=== PATIENT | female | born 1950 | race Two or more races ===

== ENCOUNTER → 2017-02-12 | Outpatient (CLI) | payer MEDICARE | END | disposition home or self-care (01) | LOC: WOUND 13:53 | PROVIDERS: ATTEND Podiatrist Foot & Ankle Surgery | DX: T81.31XA Disruption of external operation (surgical) wound, not elsewhere classified, initial encounter (principal); M06.9 Rheumatoid arthritis, unspecified; Z72.89 Other problems related to lifestyle; Y92.89 Other specified places as the place of occurrence of the external cause | CPT/HCPCS: 97597; G0463; WOU0463 ==

== ENCOUNTER → 2017-02-19 | Outpatient (CLI) | payer MEDICARE | END | disposition home or self-care (01) | LOC: WOUND 14:30 | PROVIDERS: ATTEND Podiatrist Foot & Ankle Surgery | DX: T81.31XD Disruption of external operation (surgical) wound, not elsewhere classified, subsequent encounter (principal); M06.9 Rheumatoid arthritis, unspecified; Z72.89 Other problems related to lifestyle; Y83.8 Other surgical procedures as the cause of abnormal reaction of the patient, or of later complication, without mention of misadventure at the time of the procedure | CPT/HCPCS: 11042 ==

== ENCOUNTER → 2017-02-26 | Outpatient (CLI) | payer MEDICAID, MEDICARE | END | disposition home or self-care (01) | LOC: WOUND 14:30 | PROVIDERS: ATTEND Podiatrist Foot & Ankle Surgery | DX: T81.31XD Disruption of external operation (surgical) wound, not elsewhere classified, subsequent encounter (principal); M06.9 Rheumatoid arthritis, unspecified; Z72.89 Other problems related to lifestyle; Y83.8 Other surgical procedures as the cause of abnormal reaction of the patient, or of later complication, without mention of misadventure at the time of the procedure | CPT/HCPCS: 97597 ==

== ENCOUNTER → 2017-03-05 | Outpatient (CLI) | payer MEDICARE | END | disposition home or self-care (01) | LOC: WOUND 14:30 | PROVIDERS: ATTEND Podiatrist Foot & Ankle Surgery | DX: T81.31XD Disruption of external operation (surgical) wound, not elsewhere classified, subsequent encounter (principal); M06.9 Rheumatoid arthritis, unspecified; Z72.89 Other problems related to lifestyle; Y83.8 Other surgical procedures as the cause of abnormal reaction of the patient, or of later complication, without mention of misadventure at the time of the procedure | CPT/HCPCS: 97597 ==

== ENCOUNTER → 2017-03-12 | Outpatient (CLI) | payer MEDICARE | END | disposition home or self-care (01) | LOC: WOUND 15:05 | PROVIDERS: ATTEND Podiatrist Foot & Ankle Surgery | DX: T81.31XA Disruption of external operation (surgical) wound, not elsewhere classified, initial encounter (principal); M06.9 Rheumatoid arthritis, unspecified; Z72.89 Other problems related to lifestyle; Y92.89 Other specified places as the place of occurrence of the external cause; Y83.8 Other surgical procedures as the cause of abnormal reaction of the patient, or of later complication, without mention of misadventure at the time of the procedure | CPT/HCPCS: G0463; WOU0463 ==

== ENCOUNTER → 2017-03-19 | Outpatient (CLI) | payer MEDICARE | END | disposition home or self-care (01) | LOC: WOUND 14:46 | PROVIDERS: ATTEND Podiatrist Foot & Ankle Surgery | DX: T81.31XD Disruption of external operation (surgical) wound, not elsewhere classified, subsequent encounter (principal); M06.9 Rheumatoid arthritis, unspecified; Z72.89 Other problems related to lifestyle; Y83.8 Other surgical procedures as the cause of abnormal reaction of the patient, or of later complication, without mention of misadventure at the time of the procedure | CPT/HCPCS: 11042 ==

== ENCOUNTER → 2017-03-26 | Outpatient (CLI) | payer MEDICARE | END | disposition home or self-care (01) | LOC: WOUND 14:26 | PROVIDERS: ATTEND Podiatrist Foot & Ankle Surgery | DX: T81.31XD Disruption of external operation (surgical) wound, not elsewhere classified, subsequent encounter (principal); M06.9 Rheumatoid arthritis, unspecified; Z72.89 Other problems related to lifestyle; Y83.8 Other surgical procedures as the cause of abnormal reaction of the patient, or of later complication, without mention of misadventure at the time of the procedure | CPT/HCPCS: 97597 ==

== ENCOUNTER → 2017-04-02 | Outpatient (CLI) | payer MEDICARE | END | disposition home or self-care (01) | LOC: WOUND 15:05 | PROVIDERS: ATTEND Podiatrist Foot & Ankle Surgery | DX: T81.31XD Disruption of external operation (surgical) wound, not elsewhere classified, subsequent encounter (principal); M06.9 Rheumatoid arthritis, unspecified; Z72.89 Other problems related to lifestyle; Y83.8 Other surgical procedures as the cause of abnormal reaction of the patient, or of later complication, without mention of misadventure at the time of the procedure | CPT/HCPCS: 11042 ==

== ENCOUNTER → 2017-04-09 | Outpatient (CLI) | payer MEDICARE | END | disposition home or self-care (01) | LOC: WOUND 14:00 | PROVIDERS: ATTEND Podiatrist Foot & Ankle Surgery | DX: T81.31XD Disruption of external operation (surgical) wound, not elsewhere classified, subsequent encounter (principal); M06.9 Rheumatoid arthritis, unspecified; Z72.89 Other problems related to lifestyle; Y83.8 Other surgical procedures as the cause of abnormal reaction of the patient, or of later complication, without mention of misadventure at the time of the procedure | CPT/HCPCS: 97597 ==

== ENCOUNTER → 2017-04-16 | Outpatient (CLI) | payer MEDICARE | END | disposition home or self-care (01) | LOC: WOUND 14:35 | PROVIDERS: ATTEND Podiatrist Foot & Ankle Surgery | DX: T81.31XD Disruption of external operation (surgical) wound, not elsewhere classified, subsequent encounter (principal); M06.9 Rheumatoid arthritis, unspecified; Z72.89 Other problems related to lifestyle; Y83.8 Other surgical procedures as the cause of abnormal reaction of the patient, or of later complication, without mention of misadventure at the time of the procedure | CPT/HCPCS: 97597 ==

== ENCOUNTER → 2017-04-30 | Outpatient (CLI) | payer MEDICARE | END | disposition home or self-care (01) | LOC: WOUND 14:49 | PROVIDERS: ATTEND Podiatrist Foot & Ankle Surgery | DX: T81.31XD Disruption of external operation (surgical) wound, not elsewhere classified, subsequent encounter (principal); M06.9 Rheumatoid arthritis, unspecified; Z72.89 Other problems related to lifestyle; Y83.8 Other surgical procedures as the cause of abnormal reaction of the patient, or of later complication, without mention of misadventure at the time of the procedure | CPT/HCPCS: 11042; 87070; 87077; 87186; 87205 ==

== ENCOUNTER → 2017-05-07 | Outpatient (CLI) | payer MEDICARE | END | disposition home or self-care (01) | LOC: WOUND 13:57 | PROVIDERS: ATTEND Podiatrist Foot & Ankle Surgery | DX: T81.31XD Disruption of external operation (surgical) wound, not elsewhere classified, subsequent encounter (principal); M34.1 CR(E)ST syndrome; Z72.89 Other problems related to lifestyle; M06.9 Rheumatoid arthritis, unspecified; Y83.8 Other surgical procedures as the cause of abnormal reaction of the patient, or of later complication, without mention of misadventure at the time of the procedure | CPT/HCPCS: 11042 ==

== ENCOUNTER → 2017-05-21 | Outpatient (CLI) | payer MEDICARE | END | disposition home or self-care (01) | LOC: WOUND 14:15 | PROVIDERS: ATTEND Podiatrist Foot & Ankle Surgery | DX: T81.31XD Disruption of external operation (surgical) wound, not elsewhere classified, subsequent encounter (principal); M06.9 Rheumatoid arthritis, unspecified; Z72.89 Other problems related to lifestyle; Y83.8 Other surgical procedures as the cause of abnormal reaction of the patient, or of later complication, without mention of misadventure at the time of the procedure | CPT/HCPCS: 11042 ==

== ENCOUNTER 2017-06-19 12:10 | Inpatient (IN) | payer MEDICARE ==
[~2017-06-19] VITALS: Ht 175.3 cm; Wt 71.9 kg
[2017-06-19 13:46] LABS: HEMATOCRIT 38.9 % (34.6-47.8); HEMOGLOBIN 12.8 g/dL (11.7-16.4); WHITE BLOOD COUNT 21.5 x10^3/uL (3.4-10)
[2017-06-19 13:57] LABS: BLOOD UREA NITROGEN 17 mg/dL (7-18)
[2017-06-19] MEDS ORDERED: SODIUM CHLORIDE 0.9% 1,000 ML IV ONE (15:44)
[2017-06-19] MEDS ORDERED: LIDOCAINE 1%, 20ML ONE (15:48)
[2017-06-19] MEDS ORDERED: MORPHINE SULFATE 4 MG/ML, 1ML IVPush ONE (16:00)
[2017-06-19] MEDS ORDERED: PIPERACILLIN/TAZO/PMX 3.375GM 50 ML IVPB ONE (16:00)
[2017-06-19] MEDS ORDERED: LIDOCAINE 1%, 20ML INFIL ONE (16:00)
[2017-06-19] MEDS ORDERED: SODIUM CHLORIDE FLUSH 10ML SYR IVF ONE (16:00)
[2017-06-19] MEDS ORDERED: PIPERACILLIN/TAZO/PMX 3.375GM 50 ML ONE (16:18)
[2017-06-19] MEDS ORDERED: morphine SULFATE 10 MG/ML, 1ML ONE (16:18)
[2017-06-19 17:00] VITALS: BP 118/77
[2017-06-19 20:00] VITALS: BP 99/61
[2017-06-19] MEDS: AMPICILLIN/SULBACTAM 3 GM in SODIUM CHLORIDE 0.9% 100 ML IV SCH (21:15)
[2017-06-19] MEDS: ENOXAPARIN 40 MG/0.4 ML SQ SCH (21:16)
[2017-06-19] MEDS: HYDROcodone/APAP 5/325 TABLET PO PRN (21:16)
[2017-06-19] MEDS: SODIUM CHLORIDE 0.9% 1,000 ML IV SCH (21:16)
[2017-06-19 22:00] VITALS: BP 118/77
[2017-06-20] MEDS: AMPICILLIN/SULBACTAM 3 GM in SODIUM CHLORIDE 0.9% 100 ML IV SCH ×4 (03:03→21:17)
[2017-06-20 03:10] VITALS: BP 90/52
[2017-06-20 04:58] VITALS: BP 123/79
[2017-06-20 05:39] LABS: BLOOD UREA NITROGEN 17 mg/dL (7-18)
[2017-06-20 06:11] LABS: HEMATOCRIT 34.4 % (34.6-47.8); HEMOGLOBIN 11.4 g/dL (11.7-16.4); WHITE BLOOD COUNT 17.1 x10^3/uL (3.4-10)
[2017-06-20] MEDS: HYDROcodone/APAP 5/325 TABLET PO PRN ×2 (06:35→14:20)
[2017-06-20 07:46] VITALS: BP 111/63
[2017-06-20] MEDS: ACETAMINOPHEN 325 MG TABLET PO PRN ×2 (07:56→20:39)
[2017-06-20] MEDS: SODIUM CHLORIDE 0.9% 1,000 ML IV SCH ×2 (09:18→22:11)
[2017-06-20 14:10] VITALS: BP_SYST 113; BP_SYST 140; BP_DIAS 70; BP_DIAS 90
[2017-06-20] MEDS ORDERED: GADOBUTROL 7.5 MMOL/7.5 ML PFS ONE (16:26)
[2017-06-20 20:14] VITALS: BP 104/63
[2017-06-20] MEDS: ENOXAPARIN 40 MG/0.4 ML SQ SCH (21:18)
[2017-06-21 00:47] VITALS: BP 112/66
[2017-06-21] MEDS: HYDROcodone/APAP 5/325 TABLET PO PRN ×4 (00:47→18:55)
[2017-06-21] MEDS: AMPICILLIN/SULBACTAM 3 GM in SODIUM CHLORIDE 0.9% 100 ML IV SCH ×4 (02:49→21:23)
[2017-06-21 05:24] LABS: HEMATOCRIT 33.5 % (34.6-47.8); HEMOGLOBIN 11.1 g/dL (11.7-16.4); WHITE BLOOD COUNT 18.2 x10^3/uL (3.4-10)
[2017-06-21 05:35] LABS: BLOOD UREA NITROGEN 15 mg/dL (7-18)
[2017-06-21] MEDS: ACETAMINOPHEN 325 MG TABLET PO PRN (06:06)
[2017-06-21 06:45] VITALS: BP 97/59
[2017-06-21] MEDS: SODIUM CHLORIDE 0.9% 1,000 ML IV SCH ×2 (08:59→22:04)
[2017-06-21] MEDS ORDERED: VANCOMYCIN PER PHARMACY MC PRN (12:00)
[2017-06-21] MEDS ORDERED: PHARMACOKINETIC MONITORING MC PRN (12:00)
[2017-06-21] MEDS: VANCOMYCIN 1,400 MG in SODIUM CHLORIDE 0.9% 250 ML IV SCH (12:47)
[2017-06-21 13:56] VITALS: BP 119/69
[2017-06-21 19:10] VITALS: BP 136/76
[2017-06-21] MEDS: ENOXAPARIN 40 MG/0.4 ML SQ SCH (21:24)
[2017-06-22 01:16] VITALS: BP 132/72
[2017-06-22] MEDS: HYDROcodone/APAP 5/325 TABLET PO PRN ×3 (01:54→19:48)
[2017-06-22] MEDS: AMPICILLIN/SULBACTAM 3 GM in SODIUM CHLORIDE 0.9% 100 ML IV SCH ×3 (02:58→19:46)
[2017-06-22] MEDS: VANCOMYCIN 1,400 MG in SODIUM CHLORIDE 0.9% 250 ML IV SCH (05:55)
[2017-06-22 06:08] LABS: HEMATOCRIT 30.8 % (34.6-47.8); HEMOGLOBIN 10.4 g/dL (11.7-16.4); WHITE BLOOD COUNT 19.5 x10^3/uL (3.4-10)
[2017-06-22 06:22] LABS: BLOOD UREA NITROGEN 12 mg/dL (7-18)
[2017-06-22 07:00] VITALS: BP 151/78
[2017-06-22] MEDS ORDERED: POTASSIUM CHLORIDE 40 MEQ in SODIUM CHLORIDE 0.9% 500 ML IV ONE (09:00)
[2017-06-22] MEDS: SODIUM CHLORIDE 0.9% 1,000 ML IV SCH (12:12)
[2017-06-22 13:22] VITALS: BP 118/73
[2017-06-22 19:07] VITALS: BP 124/73
[2017-06-22] MEDS: ENOXAPARIN 40 MG/0.4 ML SQ SCH (19:49)
[2017-06-23] MEDS: VANCOMYCIN 1,400 MG in SODIUM CHLORIDE 0.9% 250 ML IV SCH ×2 (00:49→18:13)
[2017-06-23] MEDS: AMPICILLIN/SULBACTAM 3 GM in SODIUM CHLORIDE 0.9% 100 ML IV SCH ×3 (03:09→14:06)
[2017-06-23 03:15] VITALS: BP 118/72
[2017-06-23] MEDS: ACETAMINOPHEN 325 MG TABLET PO PRN ×2 (05:01→14:16)
[2017-06-23 06:53] VITALS: BP 123/75
[2017-06-23] MEDS: SODIUM CHLORIDE 0.9% 1,000 ML IV SCH (08:28)
[2017-06-23] MEDS: HYDROcodone/APAP 5/325 TABLET PO PRN ×2 (08:34→18:32)
[2017-06-23 14:10] VITALS: BP 149/80
[2017-06-23] MEDS: GUAIFENESIN/DM 200-20MG, 10ML UDC PO PRN ×2 (15:05→20:48)
[2017-06-23 19:12] VITALS: BP 133/80
[2017-06-23] MEDS: ENOXAPARIN 40 MG/0.4 ML SQ SCH (20:48)
[2017-06-23] MEDS: PIPERACILLIN/TAZO/PMX 3.375GM 50 ML IV SCH (20:48)
[2017-06-24 01:12] VITALS: BP 127/86
[2017-06-24] MEDS: GUAIFENESIN/DM 200-20MG, 10ML UDC PO PRN ×4 (02:24→21:43)
[2017-06-24] MEDS: HYDROcodone/APAP 5/325 TABLET PO PRN ×5 (02:24→23:24)
[2017-06-24] MEDS: PIPERACILLIN/TAZO/PMX 3.375GM 50 ML IV SCH ×4 (02:24→21:43)
[2017-06-24 06:35] LABS: HEMATOCRIT 28.6 % (34.6-47.8); HEMOGLOBIN 9.7 g/dL (11.7-16.4); WHITE BLOOD COUNT 22.6 x10^3/uL (3.4-10)
[2017-06-24 06:40] VITALS: BP 106/68
[2017-06-24 06:56] LABS: BLOOD UREA NITROGEN 12 mg/dL (7-18)
[2017-06-24 07:23] LABS: DIFF TOTAL CELLS COUNTED 100 CELL DIFF
[2017-06-24 07:24] LABS: VERIFY COUNTS? YES
[2017-06-24] MEDS ORDERED: POTASSIUM CHLORIDE 10 MEQ TABLET.ER ONE (09:13)
[2017-06-24] MEDS: POTASSIUM CHLORIDE 20 MEQ TAB.ER.PRT PO SCH ×2 (09:22→19:18)
[2017-06-24] MEDS ORDERED: POTASSIUM CHLORIDE 40 MEQ in SODIUM CHLORIDE 0.9% 500 ML IV ONE (09:30)
[2017-06-24 12:06] VITALS: BP 109/65
[2017-06-24] MEDS: VANCOMYCIN 1,400 MG in SODIUM CHLORIDE 0.9% 250 ML IV SCH (12:17)
[2017-06-24 18:56] VITALS: BP 107/70
[2017-06-24] MEDS: ENOXAPARIN 40 MG/0.4 ML SQ SCH (21:43)
[2017-06-25 01:08] VITALS: BP 114/69
[2017-06-25] MEDS: PIPERACILLIN/TAZO/PMX 3.375GM 50 ML IV SCH ×4 (03:26→20:59)
[2017-06-25] MEDS: HYDROcodone/APAP 5/325 TABLET PO PRN ×4 (03:26→20:55)
[2017-06-25] MEDS: GUAIFENESIN/DM 200-20MG, 10ML UDC PO PRN (03:31)
[2017-06-25 05:33] LABS: HEMATOCRIT 28.2 % (34.6-47.8); HEMOGLOBIN 9.5 g/dL (11.7-16.4); WHITE BLOOD COUNT 26.4 x10^3/uL (3.4-10)
[2017-06-25] MEDS: VANCOMYCIN 1,400 MG in SODIUM CHLORIDE 0.9% 250 ML IV SCH ×2 (05:54→23:54)
[2017-06-25] MEDS ORDERED: FLU VACC QS2017-18 (36MOS+) UP/PF 0.5 ML IM-VACC ONE (06:30)
[2017-06-25 07:21] VITALS: BP 122/74
[2017-06-25 07:21] LABS: BLOOD UREA NITROGEN 14 mg/dL (7-18)
[2017-06-25] MEDS: POTASSIUM CHLORIDE 20 MEQ TAB.ER.PRT PO SCH ×2 (09:33→16:53)
[2017-06-25] MEDS ORDERED: POTASSIUM CHLORIDE 40 MEQ in SODIUM CHLORIDE 0.9% 500 ML IV ONE (10:00)
[2017-06-25] MEDS ORDERED: MAGNESIUM SULFATE PMX 2GM/50ML 50 ML IV ONE (10:00)
[2017-06-25 14:30] VITALS: BP 129/73
[2017-06-25 18:45] VITALS: BP 130/77
[2017-06-25] MEDS: ENOXAPARIN 40 MG/0.4 ML SQ SCH (20:59)
[2017-06-26 00:32] VITALS: BP 128/80
[2017-06-26] MEDS: HYDROcodone/APAP 5/325 TABLET PO PRN ×5 (00:56→22:54)
[2017-06-26] MEDS: PIPERACILLIN/TAZO/PMX 3.375GM 50 ML IV SCH ×4 (03:03→22:50)
[2017-06-26 08:00] VITALS: BP 121/73
[2017-06-26] MEDS: POTASSIUM CHLORIDE 20 MEQ TAB.ER.PRT PO SCH ×2 (08:00→17:09)
[2017-06-26 08:42] LABS: HEMOGLOBIN 9.7 g/dL (11.7-16.4); WHITE BLOOD COUNT 26.6 x10^3/uL (3.4-10)
[2017-06-26 08:55] LABS: BLOOD UREA NITROGEN 14 mg/dL (7-18)
[2017-06-26] MEDS: GUAIFENESIN/DM 200-20MG, 10ML UDC PO PRN (09:33)
[2017-06-26 14:00] VITALS: BP 98/67
[2017-06-26] MEDS: VANCOMYCIN 1,400 MG in SODIUM CHLORIDE 0.9% 250 ML IV SCH (18:33)
[2017-06-26] MEDS: IBUPROFEN 200 MG TABLET PO PRN (18:35)
[2017-06-26 18:40] VITALS: BP 147/78
[2017-06-26] MEDS: ENOXAPARIN 40 MG/0.4 ML SQ SCH (20:15)
[2017-06-27 00:24] VITALS: BP 92/61
[2017-06-27] MEDS: IBUPROFEN 200 MG TABLET PO PRN ×4 (00:24→20:07)
[2017-06-27] MEDS: PIPERACILLIN/TAZO/PMX 3.375GM 50 ML IV SCH ×2 (05:15→11:33)
[2017-06-27] MEDS: GUAIFENESIN/DM 200-20MG, 10ML UDC PO PRN ×2 (06:19→20:19)
[2017-06-27] MEDS: HYDROcodone/APAP 5/325 TABLET PO PRN ×4 (07:31→22:43)
[2017-06-27 07:55] VITALS: BP 111/65
[2017-06-27 12:40] VITALS: BP 111/68
[2017-06-27] MEDS: VANCOMYCIN 1,400 MG in SODIUM CHLORIDE 0.9% 250 ML IV SCH (13:20)
[2017-06-27] MEDS: PIPERACILLIN/TAZO 3.375 GM in SODIUM CHLORIDE 0.9% 50 ML IV SCH ×2 (17:01→23:09)
[2017-06-27 18:55] VITALS: BP 105/64
[2017-06-27] MEDS: OMEPRAZOLE 20 MG CAPSULE.DR PO SCH (20:07)
[2017-06-27] MEDS: ENOXAPARIN 40 MG/0.4 ML SQ SCH (20:08)
[2017-06-28] MEDS: IBUPROFEN 200 MG TABLET PO PRN ×2 (01:54→17:56)
[2017-06-28 04:25] VITALS: BP 107/70
[2017-06-28] MEDS: PIPERACILLIN/TAZO 3.375 GM in SODIUM CHLORIDE 0.9% 50 ML IV SCH ×4 (05:09→23:55)
[2017-06-28] MEDS: VANCOMYCIN 1,400 MG in SODIUM CHLORIDE 0.9% 250 ML IV SCH ×2 (06:02→17:56)
[2017-06-28 08:20] VITALS: BP 117/72
[2017-06-28] MEDS: OMEPRAZOLE 20 MG CAPSULE.DR PO SCH (08:30)
[2017-06-28] MEDS: HYDROcodone/APAP 5/325 TABLET PO PRN ×2 (13:43→17:56)
[2017-06-28 16:00] VITALS: BP 117/72
[2017-06-28 19:05] VITALS: BP 107/68
[2017-06-28] MEDS: ENOXAPARIN 40 MG/0.4 ML SQ SCH (20:11)
[2017-06-29] MEDS: HYDROcodone/APAP 5/325 TABLET PO PRN ×4 (00:47→21:16)
[2017-06-29] MEDS: GUAIFENESIN/DM 200-20MG, 10ML UDC PO PRN ×2 (01:07→21:16)
[2017-06-29 02:00] VITALS: BP 108/64
[2017-06-29] MEDS: PIPERACILLIN/TAZO 3.375 GM in SODIUM CHLORIDE 0.9% 50 ML IV SCH ×3 (06:12→17:04)
[2017-06-29 07:15] VITALS: BP 152/77
[2017-06-29] MEDS: VANCOMYCIN 1,400 MG in SODIUM CHLORIDE 0.9% 250 ML IV SCH (07:25)
[2017-06-29] MEDS: OMEPRAZOLE 20 MG CAPSULE.DR PO SCH (07:26)
[2017-06-29] MEDS: IBUPROFEN 200 MG TABLET PO PRN (10:10)
[2017-06-29 13:38] VITALS: BP 114/67
[2017-06-29 19:17] VITALS: BP 156/76
[2017-06-29] MEDS: ENOXAPARIN 40 MG/0.4 ML SQ SCH (21:16)
[2017-06-30] MEDS: VANCOMYCIN 1,400 MG in SODIUM CHLORIDE 0.9% 250 ML IV SCH (00:05)
[2017-06-30 00:31] VITALS: BP 142/79
[2017-06-30] MEDS: PIPERACILLIN/TAZO 3.375 GM in SODIUM CHLORIDE 0.9% 50 ML IV SCH ×2 (01:34→07:48)
[2017-06-30] MEDS: HYDROcodone/APAP 5/325 TABLET PO PRN ×5 (01:34→23:57)
[2017-06-30 06:45] VITALS: BP 148/84
[2017-06-30 07:03] LABS: HEMATOCRIT 25.6 % (34.6-47.8); HEMOGLOBIN 8.4 g/dL (11.7-16.4); WHITE BLOOD COUNT 12.1 x10^3/uL (3.4-10)
[2017-06-30 07:07] LABS: BLOOD UREA NITROGEN 11 mg/dL (7-18)
[2017-06-30] MEDS: OMEPRAZOLE 20 MG CAPSULE.DR PO SCH (07:48)
[2017-06-30 12:25] VITALS: BP 112/69
[2017-06-30] MEDS: GUAIFENESIN/DM 200-20MG, 10ML UDC PO PRN (18:02)
[2017-06-30 19:35] VITALS: BP 128/68
[2017-06-30] MEDS: ENOXAPARIN 40 MG/0.4 ML SQ SCH (20:59)
[2017-07-01 01:31] VITALS: BP 126/67
[2017-07-01] MEDS: HYDROcodone/APAP 5/325 TABLET PO PRN ×5 (05:47→22:54)
[2017-07-01 06:42] LABS: HEMATOCRIT 25.3 % (34.6-47.8); HEMOGLOBIN 8.6 g/dL (11.7-16.4); WHITE BLOOD COUNT 10.9 x10^3/uL (3.4-10)
[2017-07-01 06:47] VITALS: BP 124/72
[2017-07-01] MEDS: OMEPRAZOLE 20 MG CAPSULE.DR PO SCH (09:03)
[2017-07-01 12:09] VITALS: BP 132/72
[2017-07-01] MEDS: ENOXAPARIN 40 MG/0.4 ML SQ SCH (19:31)
[2017-07-01] MEDS: GUAIFENESIN/DM 200-20MG, 10ML UDC PO PRN (19:31)
[2017-07-01 23:32] VITALS: BP 145/79
[2017-07-02 02:17] VITALS: BP 123/74
[2017-07-02] MEDS: HYDROcodone/APAP 5/325 TABLET PO PRN ×4 (05:25→23:03)
[2017-07-02 06:43] VITALS: BP 115/66
[2017-07-02] MEDS: OMEPRAZOLE 20 MG CAPSULE.DR PO SCH (07:30)
[2017-07-02 12:27] VITALS: BP 121/75
[2017-07-02 18:52] VITALS: BP 129/68
[2017-07-02] MEDS: IBUPROFEN 200 MG TABLET PO PRN (19:15)
[2017-07-02] MEDS: ENOXAPARIN 40 MG/0.4 ML SQ SCH (20:39)
[2017-07-03 00:22] VITALS: BP 111/62
[2017-07-03] MEDS: HYDROcodone/APAP 5/325 TABLET PO PRN ×6 (03:13→23:57)
[2017-07-03 05:46] VITALS: BP 108/72
[2017-07-03] MEDS: OMEPRAZOLE 20 MG CAPSULE.DR PO SCH (07:44)
[2017-07-03 07:56] VITALS: BP 114/67
[2017-07-03 13:12] VITALS: BP 133/78
[2017-07-03 20:09] VITALS: BP 113/75
[2017-07-03] MEDS: ENOXAPARIN 40 MG/0.4 ML SQ SCH (21:06)
[2017-07-03] MEDS: IBUPROFEN 200 MG TABLET PO PRN (21:11)
[2017-07-04 00:34] VITALS: BP 105/67
[2017-07-04] MEDS: HYDROcodone/APAP 5/325 TABLET PO PRN ×5 (03:50→21:01)
[2017-07-04] MEDS: IBUPROFEN 200 MG TABLET PO PRN (03:50)
[2017-07-04 06:05] LABS: HEMATOCRIT 27.4 % (34.6-47.8); HEMOGLOBIN 9.1 g/dL (11.7-16.4); WHITE BLOOD COUNT 13.2 x10^3/uL (3.4-10)
[2017-07-04 06:20] LABS: ASPARTATE AMINO TRANSFERASE 82 U/L (15-37); BLOOD UREA NITROGEN 20 mg/dL (7-18)
[2017-07-04 06:59] VITALS: BP 114/73
[2017-07-04] MEDS: OMEPRAZOLE 20 MG CAPSULE.DR PO SCH (07:56)
[2017-07-04 13:47] VITALS: BP 111/73
[2017-07-04 20:30] VITALS: BP 119/73
[2017-07-04] MEDS: ENOXAPARIN 40 MG/0.4 ML SQ SCH (21:01)
[2017-07-05 01:07] VITALS: BP 125/77
[2017-07-05] MEDS: HYDROcodone/APAP 5/325 TABLET PO PRN ×6 (01:09→23:59)
[2017-07-05 06:55] VITALS: BP 120/74
[2017-07-05] MEDS: OMEPRAZOLE 20 MG CAPSULE.DR PO SCH (07:27)
[2017-07-05 14:45] VITALS: BP 126/79
[2017-07-05] MEDS: ENOXAPARIN 40 MG/0.4 ML SQ SCH (19:35)
[2017-07-05 19:38] VITALS: BP 122/75
[2017-07-06 01:07] VITALS: BP 116/72
[2017-07-06] MEDS: HYDROcodone/APAP 5/325 TABLET PO PRN ×5 (03:59→22:58)
[2017-07-06 05:51] LABS: BLOOD UREA NITROGEN 15 mg/dL (7-18)
[2017-07-06 05:53] LABS: HEMATOCRIT 25.4 % (34.6-47.8); HEMOGLOBIN 8.5 g/dL (11.7-16.4)
[2017-07-06 07:20] VITALS: BP 118/75
[2017-07-06] MEDS: OMEPRAZOLE 20 MG CAPSULE.DR PO SCH (08:21)
[2017-07-06 13:48] VITALS: BP 115/72
[2017-07-06] MEDS: OxyconTIN ER 10 MG TAB.ER PO SCH (14:38)
[2017-07-06 19:16] VITALS: BP 146/80
[2017-07-06] MEDS: ENOXAPARIN 40 MG/0.4 ML SQ SCH (20:01)
[2017-07-07] MEDS: OxyconTIN ER 10 MG TAB.ER PO SCH ×2 (02:35→14:30)
[2017-07-07 03:33] VITALS: BP 104/65
[2017-07-07] MEDS: HYDROcodone/APAP 5/325 TABLET PO PRN ×4 (05:06→22:16)
[2017-07-07 06:44] VITALS: BP 104/67
[2017-07-07] MEDS: OMEPRAZOLE 20 MG CAPSULE.DR PO SCH (07:25)
[2017-07-07 14:34] VITALS: BP 130/73
[2017-07-07 19:59] VITALS: BP 127/76
[2017-07-07] MEDS: ENOXAPARIN 40 MG/0.4 ML SQ SCH (20:47)
[2017-07-07] MEDS: ACETAMINOPHEN 325 MG TABLET PO PRN (20:51)
[2017-07-08 01:16] VITALS: BP 112/72
[2017-07-08] MEDS: OxyconTIN ER 10 MG TAB.ER PO SCH ×2 (02:31→14:23)
[2017-07-08] MEDS: HYDROcodone/APAP 5/325 TABLET PO PRN ×4 (03:35→21:35)
[2017-07-08 07:46] VITALS: BP 109/69
[2017-07-08] MEDS: OMEPRAZOLE 20 MG CAPSULE.DR PO SCH (08:02)
[2017-07-08 13:37] VITALS: BP 110/70
[2017-07-08 18:41] VITALS: BP 123/75
[2017-07-08] MEDS: ENOXAPARIN 40 MG/0.4 ML SQ SCH (20:24)
[2017-07-09 01:16] VITALS: BP 114/75
[2017-07-09] MEDS: HYDROcodone/APAP 5/325 TABLET PO PRN ×3 (01:43→18:41)
[2017-07-09] MEDS: OxyconTIN ER 10 MG TAB.ER PO SCH ×2 (02:52→18:00)
[2017-07-09 06:50] VITALS: BP 119/76
[2017-07-09] MEDS: OMEPRAZOLE 20 MG CAPSULE.DR PO SCH (09:09)
[2017-07-09 15:09] VITALS: BP 109/70
[2017-07-09] MEDS ORDERED: ENOX40SY4 SQ (15:33)
[2017-07-09] MEDS ORDERED: OMEP-110 PO (15:33)
[2017-07-09] MEDS ORDERED: OXYC10TA47 PO (15:33)
[2017-07-09] MEDS ORDERED: HYDR-3240 PO (15:33)
[2017-07-09] MEDS ORDERED: IBUP-1484 PO (15:33)
== END 2017-07-09 19:30 | disposition short-term general hospital (02) | DRG 872 ==
LOC: ED 13:48 → EDIP 16:38 → 3NE 16:42
PROVIDERS: ADMIT Internal Medicine; ATTEND Internal Medicine
DX: A41.9 Sepsis, unspecified organism (principal); E44.0 Moderate protein-calorie malnutrition; M34.9 Systemic sclerosis, unspecified; L03.116 Cellulitis of left lower limb; L03.115 Cellulitis of right lower limb; L88 Pyoderma gangrenosum; I77.6 Arteritis, unspecified; M06.9 Rheumatoid arthritis, unspecified; Z68.23 Body mass index [BMI] 23.0-23.9, adult; Z88.8 Allergy status to other drugs, medicaments and biological substances
CPT/HCPCS: 36415; 71010; 80048; 80053; 80202; 82040; 83605; 83735; 83880; 85025; 85651; 86140; 87015; 87040; 87070; 87077; 87116; 87205; 87206; 90686; 93005; 93970; 96365; 96366; 96375; A9585; J0295; J1650; J2543; J3370; J3480; J3490; J3475; J7030; J7040; J7050

== ENCOUNTER 2019-06-16 11:54 | Inpatient (IN) ==
[~2019-06-16] VITALS: Ht 175.3 cm; Wt 70.9 kg
[~2019-06-16 11:54] MED LIST: ENOX40SY4 SQ; HYDR-3240 PO; IBUP-1902 PO; OMEP-110 PO; OXYC10TA47 PO
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
[2019-06-16] MEDS ORDERED: CEFTRIAXONE PMX 1GM/50ML 50 ML ONE (12:55)
[2019-06-16] MEDS ORDERED: CEFTRIAXONE PMX 1GM/50ML 50 ML IVPB ONE (13:00)
[2019-06-16] MEDS ORDERED: SODIUM CHLORIDE FLUSH 10ML SYR IVF ONE (13:00)
[2019-06-16] MEDS ORDERED: VANCOMYCIN 1,400 MG in SODIUM CHLORIDE 0.9% 250 ML IV ONE (13:00)
[2019-06-16] MEDS ORDERED: VANCOMYCIN PER PHARMACY MC ONE (13:00)
--- NOTE | 2019-06-16 13:04 | NUR ---
ABX INFUSING AT THIS TIME. PT TOLERATED WELL.
[2019-06-16 13:09] LABS: BASOPHILS # (AUTO) 0.02 x10^3/uL (0-0.1); BASOPHILS % (AUTO) 0 % (0-1); EOSINOPHILS # (AUTO) 0.01 x10^3/uL (0-0.4); EOSINOPHILS % (AUTO) 0 % (1-7); LYMPHOCYTES # (AUTO) 1.63 x10^3/uL (1-3.4); LYMPHOCYTES % (AUTO) 22 % (22-44); MD NO; MEAN CORPUSCULAR HEMOGLOBIN 30.7 pg (27.0-34.8); MEAN CORPUSCULAR HGB CONC 32.5 g/dL (32.4-35.8); MEAN CORPUSCULAR VOLUME 94.4 fL (80-100); MEAN PLATELET VOLUME 9.2 fL (7.4-10.4); MONOCYTES % (AUTO) 7 % (2-9); NEUTROPHILS # (AUTO) 5.32 x10^3/uL (1.8-6.8); NEUTROPHILS % (AUTO) 71 % (42-75); PLATELET COUNT 215 x10^3/uL (130-400); RED BLOOD COUNT 4.74 x10^6/uL (3.82-5.3); RED CELL DISTRIBUTION WIDTH 14.8 % (9.6-15.2)
[2019-06-16 13:15] LABS: ALBUMIN 3.5 g/dL (3.4-5.0); ANION GAP 4 mmol/L (5-15); CALCIUM 8.9 mg/dL (8.5-10.1); CHLORIDE 109 mmol/L (98-107); CREATININE 0.63 mg/dL (0.55-1.02)
--- NOTE | 2019-06-16 14:06 | NUR ---
TASK RN, COVERING MEAL BREAK. ROCEPHIN COMPLETED, VANCOMYCIN INFUSING ON PUMP. PULSE OX PLACED. CALL LIGHT WITHIN REACH.
--- NOTE | 2019-06-16 15:01 | NUR ---
report given to ana ann. all questions answered.
[2019-06-16] MEDS ORDERED: DOCUSATE 100 MG CAPSULE PO PRN (15:30)
[2019-06-16] MEDS ORDERED: VANCOMYCIN PER PHARMACY MC PRN (15:30)
[2019-06-16 15:35] VITALS: BP 156/77
[2019-06-16] MEDS ORDERED: PHARMACOKINETIC MONITORING MC PRN (16:00)
[2019-06-16] MEDS ORDERED: PHARMACOKINETIC CONSULTATION MC ONE (16:00)
[2019-06-16 19:10] VITALS: BP 93/68
[2019-06-16] MEDS: ONDANSETRON ODT 4 MG PO PRN (21:01)
[2019-06-17 05:44] LABS: ANION GAP 6 mmol/L (5-15); CALCIUM 8.8 mg/dL (8.5-10.1); CHLORIDE 110 mmol/L (98-107)
[2019-06-17 05:45] LABS: CREATININE 0.72 mg/dL (0.55-1.02)
[2019-06-17 07:15] VITALS: BP 92/60
[2019-06-17] MEDS: IBUPROFEN 600 MG TABLET PO PRN ×2 (09:16→22:55)
[2019-06-17] MEDS: CEFTRIAXONE PMX 1GM/50ML 50 ML IV SCH (13:00)
[2019-06-17 14:00] VITALS: BP 111/70
[2019-06-17] MEDS: VANCOMYCIN 1,400 MG in SODIUM CHLORIDE 0.9% 250 ML IV SCH ×3 (14:30→16:00)
[2019-06-17] MEDS ORDERED: GADOTERATE 7.5 MMOL/15 ML SYR ONE (15:07)
[2019-06-17 19:49] VITALS: BP 112/70
[2019-06-18 00:11] VITALS: BP 112/68
[2019-06-18 05:10] LABS: HCT (SEDRATE) 41.5 % (34.6-47.8)
[2019-06-18 10:48] VITALS: BP 119/71
[2019-06-18] MEDS: CEFTRIAXONE PMX 1GM/50ML 50 ML IV SCH (13:25)
[2019-06-18 14:25] VITALS: BP 110/77
[2019-06-18 19:00] VITALS: BP 135/79
[2019-06-18] MEDS: VANCOMYCIN 1,400 MG in SODIUM CHLORIDE 0.9% 250 ML IV SCH (20:34)
[2019-06-19 01:50] VITALS: BP 122/76
[2019-06-19 07:27] VITALS: BP 113/70
[2019-06-19 12:20] VITALS: BP 126/79
[2019-06-19] MEDS: CEFTRIAXONE PMX 1GM/50ML 50 ML IV SCH (14:36)
[2019-06-19 18:31] VITALS: BP 118/71
[2019-06-19] MEDS: VANCOMYCIN 1,400 MG in SODIUM CHLORIDE 0.9% 250 ML IV SCH (21:00)
[2019-06-19] MEDS: IBUPROFEN 600 MG TABLET PO PRN (22:56)
[2019-06-20 01:07] VITALS: BP 124/75
[2019-06-20 07:04] VITALS: BP 123/83
[2019-06-20] MEDS ORDERED: VANCOMYCIN 1,400 MG in SODIUM CHLORIDE 0.9% 250 ML IV SCH (09:00)
[2019-06-20] MEDS ORDERED: VISIPAQUE 270 MG/ML, 50ML BOTTLE ONE (10:00)
[2019-06-20 13:16] VITALS: BP 127/80
[2019-06-20] MEDS: ONDANSETRON ODT 4 MG PO PRN (13:21)
[2019-06-20] MEDS: CEFTRIAXONE PMX 1GM/50ML 50 ML IV SCH ×2 (13:21→23:26)
[2019-06-20 19:11] VITALS: BP 136/84
[2019-06-20] MEDS: IBUPROFEN 600 MG TABLET PO PRN (19:14)
[2019-06-20] MEDS: VANCOMYCIN 1,400 MG in SODIUM CHLORIDE 0.9% 250 ML IV SCH (21:20)
[2019-06-21 01:38] VITALS: BP 99/60
[2019-06-21 07:19] VITALS: BP 116/75
[2019-06-21] MEDS: VANCOMYCIN 1,400 MG in SODIUM CHLORIDE 0.9% 250 ML IV SCH ×2 (10:22→21:09)
[2019-06-21 13:44] VITALS: BP 120/78
[2019-06-21 13:57] LABS: MEAN CORPUSCULAR HEMOGLOBIN 30.8 pg (27.0-34.8); MEAN CORPUSCULAR HGB CONC 33.2 g/dL (32.4-35.8); MEAN CORPUSCULAR VOLUME 92.8 fL (80-100); MEAN PLATELET VOLUME 8.8 fL (7.4-10.4); PLATELET COUNT 152 x10^3/uL (130-400); RED BLOOD COUNT 4.42 x10^6/uL (3.82-5.3)
[2019-06-21 14:32] LABS: MD YES
[2019-06-21 14:48] LABS: BAND#(MANUAL) 0.43 x10^3/uL; BANDS%(MANUAL) 16 % (0-7); EOS#(MANUAL) 0.03 x10^3/uL (0.0-0.4); EOS% (MANUAL) 1 % (1-7); LYMPH#(MANUAL) 0.19 x10^3/uL (1-3.4); LYMPHS% (MANUAL) 7 % (22-44); MONOS#(MANUAL) 0.14 x10^3/uL (0.3-2.7); MONOS% (MANUAL) 5 % (2-9); SEG#(MANUAL) 1.92 x10^3/uL (1.8-6.8); SEGS% (MANUAL) 71 % (42-75)
[2019-06-21 14:49] LABS: <RBC MORPHOLOGY> NORMAL
[2019-06-21 14:50] LABS: <PLATELET ESTIMATE> ADEQUATE; <PLT MORPHOLOGY> NORMAL PLT MORPH; PMNS WITH VACUOLES 1+
[2019-06-21 19:24] VITALS: BP 127/80
[2019-06-21] MEDS: ONDANSETRON ODT 4 MG PO PRN (19:44)
[2019-06-21] MEDS ORDERED: ACETAMINOPHEN 325 MG TABLET PO ONE (20:00)
[2019-06-21] MEDS: ENOXAPARIN 40 MG/0.4 ML SQ SCH (21:09)
[2019-06-22 01:03] VITALS: BP 108/56
[2019-06-22] MEDS: ONDANSETRON ODT 4 MG PO PRN (05:14)
[2019-06-22 05:16] VITALS: BP 108/70
[2019-06-22 05:17] LABS: MICROSCOPIC INDICATED
[2019-06-22 05:28] LABS: CULTURE INDICATED? NO
[2019-06-22 05:29] LABS: MEAN CORPUSCULAR HEMOGLOBIN 30.7 pg (27.0-34.8); MEAN CORPUSCULAR HGB CONC 33.6 g/dL (32.4-35.8); MEAN CORPUSCULAR VOLUME 91.4 fL (80-100); MEAN PLATELET VOLUME 8.4 fL (7.4-10.4); PLATELET COUNT 135 x10^3/uL (130-400); RED CELL DISTRIBUTION WIDTH 14.9 % (9.6-15.2)
[2019-06-22] MEDS ORDERED: ACETAMINOPHEN 325 MG TABLET PO ONE (05:30)
[2019-06-22 05:36] LABS: ANION GAP 7 mmol/L (5-15); CHLORIDE 106 mmol/L (98-107); CREATININE 1.13 mg/dL (0.55-1.02)
[2019-06-22 05:50] LABS: MD YES
[2019-06-22 05:54] LABS: <PLATELET ESTIMATE> ADEQUATE; <PLT MORPHOLOGY> NORMAL PLT MORPH; <RBC MORPHOLOGY> NORMAL; BAND#(MANUAL) 0.97 x10^3/uL; BANDS%(MANUAL) 22 % (0-7); EOS#(MANUAL) 0.22 x10^3/uL (0.0-0.4); EOS% (MANUAL) 5 % (1-7); LYMPH#(MANUAL) 0.53 x10^3/uL (1-3.4); LYMPHS% (MANUAL) 12 % (22-44); METAMYELOCYTES# (MANUAL) 0.04 x10^3/uL (0-0); METAMYELOCYTES% (MANUAL) 1 % (0-1); MONOS#(MANUAL) 0.22 x10^3/uL (0.3-2.7); MONOS% (MANUAL) 5 % (2-9); SEG#(MANUAL) 2.42 x10^3/uL (1.8-6.8); SEGS% (MANUAL) 55 % (42-75)
[2019-06-22 07:27] VITALS: BP 119/69
[2019-06-22] MEDS ORDERED: MAGNESIUM SULFATE PMX 2GM/50ML 50 ML IV ONE (09:00)
[2019-06-22] MEDS ORDERED: POTASSIUM CHLORIDE 20 MEQ TAB.ER.PRT PO ONE ×2 (09:00→12:00)
[2019-06-22] MEDS ORDERED: LACTATED RINGERS 1,000 ML IV SCH (09:30)
[2019-06-22] MEDS: VANCOMYCIN 1,400 MG in SODIUM CHLORIDE 0.9% 250 ML IV SCH (09:32)
[2019-06-22] MEDS ORDERED: methylPREDNISolone SOD SUCC 125 MG/2 ML IVPush SCH (10:30)
[2019-06-22] MEDS ORDERED: DIPHENHYDRAMINE 50 MG/ML, 1ML IVPush ONE ×2 (10:30→11:30)
[2019-06-22] MEDS ORDERED: FAMOTIDINE 20 MG/2 ML IVPush ONE (10:30)
[2019-06-22] MEDS ORDERED: DIPHENHYDRAMINE 50 MG/ML, 1ML ONE (11:16)
[2019-06-22] MEDS: HYDROcodone/APAP 5/325 TABLET PO PRN (11:41)
[2019-06-22 13:47] VITALS: BP 124/72
[2019-06-22 14:20] LABS: RAPID INFLUENZA A Negative (Negative); RAPID INFLUENZA B Negative (Negative)
[2019-06-22] MEDS: FAMOTIDINE 20 MG/2 ML IVPush SCH (15:00)
[2019-06-22] MEDS ORDERED: CEFTRIAXONE PMX 1GM/50ML 50 ML IV SCH (15:30)
[2019-06-22] MEDS ORDERED: MEPERIDINE/PF 25MG/ML,1ML IVPush PRN (17:30)
[2019-06-22] MEDS ORDERED: HYDROmorphone 2 MG/ML, 1ML IVPush PRN (17:30)
[2019-06-22] MEDS ORDERED: MIDAZOLAM 1 MG/ML, 2ML IV PRN (17:30)
[2019-06-22] MEDS ORDERED: FENTANYL PF 100 MCG/2ML IV PRN (17:30)
[2019-06-22] MEDS ORDERED: ALBUTEROL/IPRATROPIUM 2.5MG/0.5MG, 3 ML NPPB PRN (17:30)
[2019-06-22] MEDS ORDERED: ACETAMINOPHEN 325 MG TABLET PO PRN (17:30)
[2019-06-22] MEDS ORDERED: LABETALOL 5MG/ML, 20ML IV PRN (17:30)
[2019-06-22] MEDS ORDERED: PROMETHAZINE 25 MG/ML, 1ML IV PRN (17:30)
[2019-06-22] MEDS ORDERED: hydrALAzine 20 MG/ML, 1ML IV PRN (17:30)
[2019-06-22] MEDS ORDERED: OXYcodone 5 MG/5 ML ORAL.SOL UDC PO PRN ×2 (17:30→20:30)
[2019-06-22] MEDS ORDERED: MIDAZOLAM 1 MG/ML, 2ML ONE ×2 (17:33→17:50)
[2019-06-22] MEDS ORDERED: FENTANYL PF 100 MCG/2ML ONE ×2 (17:33→19:07)
[2019-06-22] MEDS ORDERED: CEFTRIAXONE 1,000 MG ONE (17:40)
[2019-06-22] MEDS ORDERED: BACITRACIN 50,000 UNIT ONE (17:41)
[2019-06-22] MEDS ORDERED: LIDOCAINE PF 2%, 5ML ONE (17:50)
[2019-06-22] MEDS ORDERED: ONDANSETRON 2MG/ML, 2ML ONE (18:10)
[2019-06-22] MEDS ORDERED: PROPOFOL 10 MG/ML, 20ML ONE (18:10)
[2019-06-22] MEDS ORDERED: DEXAMETHASONE 4 MG/ML, 1ML ONE (18:10)
[2019-06-22] MEDS ORDERED: OXYcodone 5 MG/5 ML ORAL.SOL UDC ONE (18:58)
[2019-06-22 19:33] VITALS: BP 96/59
[2019-06-22] MEDS ORDERED: ACETAMINOPHEN 500 MG TABLET PO ONE (20:00)
[2019-06-22] MEDS ORDERED: MAGNESIUM HYDROXIDE 8%, 30ML UDC PO PRN (20:00)
[2019-06-22] MEDS ORDERED: BISACODYL 10 MG SUPP PR PRN (20:00)
[2019-06-22] MEDS ORDERED: SENNA/DOCUSATE TABLET PO PRN (20:00)
[2019-06-22] MEDS ORDERED: ALUMINUM/MAG/SIMETHICONE 30 ML UDC PO PRN (20:00)
[2019-06-22] MEDS ORDERED: PROMETHAZINE 25 MG/ML, 1ML IM PRN (20:30)
[2019-06-22] MEDS: ACETAMINOPHEN 500 MG TABLET PO SCH (20:30)
[2019-06-22] MEDS ORDERED: morphine SULFATE 10 MG/ML, 1ML IV PRN (20:30)
[2019-06-22] MEDS ORDERED: ONDANSETRON 2MG/ML, 2ML IV PRN (20:30)
[2019-06-22] MEDS ORDERED: HYDROcodone/APAP 7.5-325MG/15ML UDC PO PRN (20:30)
[2019-06-22] MEDS: ENOXAPARIN 40 MG/0.4 ML SQ SCH (22:14)
[2019-06-22] MEDS: DOCUSATE 100 MG CAPSULE PO SCH (22:14)
[2019-06-23 01:08] VITALS: BP 121/75
[2019-06-23] MEDS: CEFAZOLIN PMX 1GM/50ML 50 ML IVPB SCH ×2 (02:08→10:15)
[2019-06-23] MEDS: D5%-0.45% NACL 1,000 ML IV SCH ×2 (02:09→10:16)
[2019-06-23] MEDS: ACETAMINOPHEN 500 MG TABLET PO SCH ×4 (03:06→19:53)
[2019-06-23] MEDS: CEFTRIAXONE PMX 2GM/50ML 50 ML IV SCH (03:06)
[2019-06-23 07:29] VITALS: BP 124/72
[2019-06-23] MEDS: MULTIVITAMINS/MINERALS TABLET PO SCH (08:22)
[2019-06-23] MEDS: FAMOTIDINE 20 MG/2 ML IVPush SCH (08:22)
[2019-06-23] MEDS: DOCUSATE 100 MG CAPSULE PO SCH ×2 (08:22→21:00)
[2019-06-23 10:08] LABS: BASOPHILS # (AUTO) 0.01 x10^3/uL (0-0.1); BASOPHILS % (AUTO) 0 % (0-1); EOSINOPHILS # (AUTO) 0.01 x10^3/uL (0-0.4); EOSINOPHILS % (AUTO) 0 % (1-7); LYMPHOCYTES # (AUTO) 0.42 x10^3/uL (1-3.4); LYMPHOCYTES % (AUTO) 14 % (22-44); MD NO; MEAN CORPUSCULAR HEMOGLOBIN 30.2 pg (27.0-34.8); MEAN CORPUSCULAR VOLUME 91.7 fL (80-100); MEAN PLATELET VOLUME 8.3 fL (7.4-10.4); MONOCYTES # (AUTO) 0.12 x10^3/uL (0.2-0.8); MONOCYTES % (AUTO) 4 % (2-9); NEUTROPHILS # (AUTO) 2.53 x10^3/uL (1.8-6.8); NEUTROPHILS % (AUTO) 82 % (42-75); PLATELET COUNT 124 x10^3/uL (130-400); RED BLOOD COUNT 4.39 x10^6/uL (3.82-5.3); RED CELL DISTRIBUTION WIDTH 15.7 % (9.6-15.2)
[2019-06-23 10:22] LABS: ALANINE AMINOTRANSFERASE 43 U/L (12-78); ALBUMIN 2.7 g/dL (3.4-5.0); ANION GAP 9 mmol/L (5-15); CALCIUM 8.1 mg/dL (8.5-10.1); CHLORIDE 106 mmol/L (98-107); CREATININE 1.13 mg/dL (0.55-1.02)
[2019-06-23 10:24] LABS: ALKALINE PHOSPHATASE 83 U/L (45-117); BILIRUBIN,TOTAL 0.2 mg/dL (0.2-1.0); TOTAL PROTEIN 6.5 g/dL (6.4-8.2)
[2019-06-23 13:02] VITALS: BP 143/88
[2019-06-23] MEDS ORDERED: DIPHENHYDRAMINE 25 MG CAPSULE PO ONE (15:30)
[2019-06-23 18:26] VITALS: BP 148/76
[2019-06-23] MEDS: FAMOTIDINE 20 MG TABLET PO SCH (19:53)
[2019-06-23] MEDS: ENOXAPARIN 40 MG/0.4 ML SQ SCH (19:53)
[2019-06-23 20:10] VITALS: BP 131/80
[2019-06-24 02:19] VITALS: BP 128/83
[2019-06-24] MEDS: ACETAMINOPHEN 500 MG TABLET PO SCH ×4 (02:58→20:54)
[2019-06-24] MEDS: CEFTRIAXONE PMX 2GM/50ML 50 ML IV SCH (02:59)
[2019-06-24] MEDS: D5%-0.45% NACL 1,000 ML IV SCH ×2 (02:59→14:00)
[2019-06-24] MEDS: HYDROcodone/APAP 5/325 TABLET PO PRN ×2 (03:31→14:14)
[2019-06-24] MEDS: MULTIVITAMINS/MINERALS TABLET PO SCH (09:01)
[2019-06-24] MEDS: DOCUSATE 100 MG CAPSULE PO SCH ×2 (09:02→20:54)
[2019-06-24] MEDS: FAMOTIDINE 20 MG TABLET PO SCH ×2 (09:02→20:54)
[2019-06-24 09:50] VITALS: BP 151/91
[2019-06-24] MEDS: PIPERACILLIN/TAZO/PMX 3.375GM 50 ML IV SCH ×3 (10:27→23:44)
[2019-06-24 15:58] VITALS: BP 98/65
[2019-06-24 19:09] VITALS: BP 96/45
[2019-06-24] MEDS: ENOXAPARIN 40 MG/0.4 ML SQ SCH (20:58)
[2019-06-24 22:26] VITALS: BP 94/64
[2019-06-25 00:47] VITALS: BP 117/68
[2019-06-25] MEDS: ACETAMINOPHEN 500 MG TABLET PO SCH ×4 (01:57→21:12)
[2019-06-25 04:37] LABS: BASOPHILS # (AUTO) 0.01 x10^3/uL (0-0.1); BASOPHILS % (AUTO) 0 % (0-1); EOSINOPHILS # (AUTO) 0.27 x10^3/uL (0-0.4); EOSINOPHILS % (AUTO) 6 % (1-7); LYMPHOCYTES # (AUTO) 0.92 x10^3/uL (1-3.4); LYMPHOCYTES % (AUTO) 19 % (22-44); MD NO; MEAN CORPUSCULAR HEMOGLOBIN 30.4 pg (27.0-34.8); MEAN CORPUSCULAR HGB CONC 32.5 g/dL (32.4-35.8); MEAN CORPUSCULAR VOLUME 93.5 fL (80-100); MEAN PLATELET VOLUME 9.1 fL (7.4-10.4); MONOCYTES # (AUTO) 0.37 x10^3/uL (0.2-0.8); MONOCYTES % (AUTO) 8 % (2-9); NEUTROPHILS # (AUTO) 3.16 x10^3/uL (1.8-6.8); NEUTROPHILS % (AUTO) 67 % (42-75); PLATELET COUNT 123 x10^3/uL (130-400); RED BLOOD COUNT 4.21 x10^6/uL (3.82-5.3); RED CELL DISTRIBUTION WIDTH 15.7 % (9.6-15.2)
[2019-06-25 04:40] LABS: ALBUMIN 2.3 g/dL (3.4-5.0); ANION GAP 4 mmol/L (5-15); CALCIUM 8.1 mg/dL (8.5-10.1); CHLORIDE 108 mmol/L (98-107)
[2019-06-25 04:44] LABS: ALANINE AMINOTRANSFERASE 46 U/L (12-78); ALKALINE PHOSPHATASE 78 U/L (45-117); BILIRUBIN,TOTAL 0.4 mg/dL (0.2-1.0); TOTAL PROTEIN 5.5 g/dL (6.4-8.2)
[2019-06-25] MEDS: PIPERACILLIN/TAZO/PMX 3.375GM 50 ML IV SCH ×5 (05:37→22:11)
[2019-06-25 06:06] VITALS: BP 113/71
[2019-06-25] MEDS: DOCUSATE 100 MG CAPSULE PO SCH ×2 (11:10→21:12)
[2019-06-25] MEDS: MULTIVITAMINS/MINERALS TABLET PO SCH (11:10)
[2019-06-25] MEDS: FAMOTIDINE 20 MG TABLET PO SCH ×2 (11:10→21:12)
[2019-06-25] MEDS: ONDANSETRON ODT 4 MG PO PRN (11:10)
[2019-06-25] MEDS ORDERED: PIPERACILLIN/TAZO/PMX 4.5GM 100 ML IV SCH (14:00)
[2019-06-25 15:35] VITALS: BP 105/69
[2019-06-25 16:01] VITALS: BP 105/69
[2019-06-25 19:40] VITALS: BP 106/54
[2019-06-25] MEDS: ENOXAPARIN 40 MG/0.4 ML SQ SCH (21:13)
[2019-06-26 01:30] VITALS: BP 103/64
[2019-06-26] MEDS: ACETAMINOPHEN 500 MG TABLET PO SCH ×4 (02:30→20:53)
[2019-06-26] MEDS: PIPERACILLIN/TAZO/PMX 3.375GM 50 ML IV SCH ×3 (06:02→22:04)
[2019-06-26 06:11] VITALS: BP 105/65
[2019-06-26] MEDS: MULTIVITAMINS/MINERALS TABLET PO SCH (09:01)
[2019-06-26] MEDS: DOCUSATE 100 MG CAPSULE PO SCH ×2 (09:01→20:54)
[2019-06-26] MEDS: FAMOTIDINE 20 MG TABLET PO SCH ×2 (09:01→20:54)
[2019-06-26] MEDS: ONDANSETRON ODT 4 MG PO PRN (12:52)
[2019-06-26 13:03] VITALS: BP 102/65
[2019-06-26 19:18] VITALS: BP 107/64
[2019-06-26] MEDS: ENOXAPARIN 40 MG/0.4 ML SQ SCH (21:00)
[2019-06-27 01:28] VITALS: BP 107/69
[2019-06-27] MEDS: ACETAMINOPHEN 500 MG TABLET PO SCH ×4 (02:30→20:13)
[2019-06-27] MEDS: PIPERACILLIN/TAZO/PMX 3.375GM 50 ML IV SCH (05:59)
[2019-06-27 06:57] VITALS: BP 109/72
[2019-06-27] MEDS: DOCUSATE 100 MG CAPSULE PO SCH ×2 (08:20→20:12)
[2019-06-27] MEDS: MULTIVITAMINS/MINERALS TABLET PO SCH (08:33)
[2019-06-27] MEDS: FAMOTIDINE 20 MG TABLET PO SCH ×2 (08:33→20:13)
[2019-06-27 12:24] VITALS: BP 123/76
[2019-06-27 15:33] LABS: BASOPHILS # (AUTO) 0.01 x10^3/uL (0-0.1); BASOPHILS % (AUTO) 0 % (0-1); EOSINOPHILS # (AUTO) 0.15 x10^3/uL (0-0.4); EOSINOPHILS % (AUTO) 2 % (1-7); LYMPHOCYTES # (AUTO) 1.41 x10^3/uL (1-3.4); LYMPHOCYTES % (AUTO) 20 % (22-44); MD NO; MEAN CORPUSCULAR HEMOGLOBIN 29.9 pg (27.0-34.8); MEAN CORPUSCULAR HGB CONC 32.4 g/dL (32.4-35.8); MEAN CORPUSCULAR VOLUME 92.3 fL (80-100); MEAN PLATELET VOLUME 8.1 fL (7.4-10.4); MONOCYTES # (AUTO) 0.55 x10^3/uL (0.2-0.8); MONOCYTES % (AUTO) 8 % (2-9); NEUTROPHILS # (AUTO) 4.88 x10^3/uL (1.8-6.8); NEUTROPHILS % (AUTO) 70 % (42-75); PLATELET COUNT 197 x10^3/uL (130-400); RED BLOOD COUNT 4.13 x10^6/uL (3.82-5.3); RED CELL DISTRIBUTION WIDTH 16.2 % (9.6-15.2)
[2019-06-27 15:44] LABS: ALBUMIN 2.3 g/dL (3.4-5.0); ANION GAP 4 mmol/L (5-15); CALCIUM 8.5 mg/dL (8.5-10.1); CHLORIDE 108 mmol/L (98-107)
[2019-06-27 15:53] LABS: ALANINE AMINOTRANSFERASE 151 U/L (12-78); ALKALINE PHOSPHATASE 78 U/L (45-117); BILIRUBIN,TOTAL 0.3 mg/dL (0.2-1.0); CREATININE 0.91 mg/dL (0.55-1.02); TOTAL PROTEIN 5.7 g/dL (6.4-8.2)
[2019-06-27 17:12] LABS: HCT (SEDRATE) 38.1 % (34.6-47.8)
[2019-06-27] MEDS: ONDANSETRON ODT 4 MG PO PRN (18:13)
[2019-06-27 18:44] VITALS: BP 114/60
[2019-06-27] MEDS: ENOXAPARIN 40 MG/0.4 ML SQ SCH (20:12)
[2019-06-28 01:42] VITALS: BP 117/71
[2019-06-28] MEDS: ACETAMINOPHEN 500 MG TABLET PO SCH ×2 (02:30→08:30)
[2019-06-28 06:49] VITALS: BP 109/68
[2019-06-28] MEDS: DOCUSATE 100 MG CAPSULE PO SCH (09:00)
[2019-06-28] MEDS: MULTIVITAMINS/MINERALS TABLET PO SCH (09:25)
[2019-06-28] MEDS: FAMOTIDINE 20 MG TABLET PO SCH (09:25)
[2019-06-28] MEDS ORDERED: ONDA4TAB7 PO (11:47)
[2019-06-28 12:16] VITALS: BP 109/73
== END 2019-06-28 15:35 | disposition left against medical advice (07) | DRG 539 ==
LOC: ED 14:24 → EDIP 14:25 → ED 14:31 → 3N 15:25
PROVIDERS: ADMIT Family Medicine; ATTEND Hospitalist
PROC: 02HV33Z Insertion of Infusion Device into Superior Vena Cava, Percutaneous Approach (ICD-10-PCS; 2019-06-20)
PROC: B548ZZA Ultrasonography of Superior Vena Cava, Guidance (ICD-10-PCS; 2019-06-20)
PROC: B5181ZA Fluoroscopy of Superior Vena Cava using Low Osmolar Contrast, Guidance (ICD-10-PCS; 2019-06-20)
PROC: 0X9J0ZZ Drainage of Right Hand, Open Approach (ICD-10-PCS; principal; 2019-06-22 16:30)
DX: M86.141 Other acute osteomyelitis, right hand (principal); A41.9 Sepsis, unspecified organism; L03.113 Cellulitis of right upper limb; N17.9 Acute kidney failure, unspecified; I82.602 Acute embolism and thrombosis of unspecified veins of left upper extremity; L03.011 Cellulitis of right finger; M34.9 Systemic sclerosis, unspecified; B96.5 Pseudomonas (aeruginosa) (mallei) (pseudomallei) as the cause of diseases classified elsewhere; E83.42 Hypomagnesemia; E87.6 Hypokalemia; M06.9 Rheumatoid arthritis, unspecified; Z53.20 Procedure and treatment not carried out because of patient's decision for unspecified reasons; Z82.49 Family history of ischemic heart disease and other diseases of the circulatory system; Z83.3 Family history of diabetes mellitus; Z88.1 Allergy status to other antibiotic agents
CPT/HCPCS: 36415; 36573; 71045; 80048; 80053; 80202; 81001; 82040; 83605; 83735; 84100; 84145; 85025; 85379; 85651; 86140; 87040; 87070; 87075; 87077; 87176; 87186; 87205; 87400; 96365; 99285; G0378; J0690; J0696; J1100; J1650; J2250; J2405; J2543; J2704; J3010; J3370; Q0162; Q9966; A9575; C1751; J1200; J3475; J3490; J7050; J7120; Q0163

== ENCOUNTER 2019-06-29 08:26 | Outpatient (CLI) | payer MEDICARE ==
[~2019-06-29 08:26] MED LIST changes: +ONDA4TAB7 PO
== END 2019-06-29 23:59 | disposition home or self-care (01) ==
LOC: WOUND 08:26
PROVIDERS: ATTEND Internal Medicine
DX: L97.522 Non-pressure chronic ulcer of other part of left foot with fat layer exposed (principal); S61.206D Unspecified open wound of right little finger without damage to nail, subsequent encounter; M86.042 Acute hematogenous osteomyelitis, left hand; L94.0 Localized scleroderma [morphea]; Z91.19 Patient's noncompliance with other medical treatment and regimen; X58.XXXD Exposure to other specified factors, subsequent encounter
CPT/HCPCS: 11042; G0463

== ENCOUNTER → 2019-07-05 | Outpatient (CLI) | payer MEDICARE | END | disposition home or self-care (01) | LOC: WOUND 14:24 | PROVIDERS: ATTEND Nurse Practitioner Family | DX: L97.522 Non-pressure chronic ulcer of other part of left foot with fat layer exposed (principal); S61.206D Unspecified open wound of right little finger without damage to nail, subsequent encounter; M86.042 Acute hematogenous osteomyelitis, left hand; L94.0 Localized scleroderma [morphea]; Z91.19 Patient's noncompliance with other medical treatment and regimen; X58.XXXD Exposure to other specified factors, subsequent encounter | CPT/HCPCS: 97597 ==

== ENCOUNTER → 2019-07-12 | Outpatient (CLI) | payer MEDICARE | END | disposition home or self-care (01) | LOC: WOUND 13:45 | PROVIDERS: ATTEND Nurse Practitioner Family | DX: L97.522 Non-pressure chronic ulcer of other part of left foot with fat layer exposed (principal); S61.206D Unspecified open wound of right little finger without damage to nail, subsequent encounter; M86.042 Acute hematogenous osteomyelitis, left hand; L94.0 Localized scleroderma [morphea]; Z91.19 Patient's noncompliance with other medical treatment and regimen; X58.XXXD Exposure to other specified factors, subsequent encounter | CPT/HCPCS: 97597 ==